=== PATIENT | female | born 1975 | race Caucasian/White ===

== ENCOUNTER 2023-02-26 00:51 | Day surgery (SDC) | payer OTHER, SELFPAY ==
[2023-02-14 14:39] VITALS: BMI 39.5
--- NOTE | 2023-02-25 21:03 | PM.HPGS ---
History of Present Illness History of Present Illness Consent: Risks, benefits, and alternatives have been discussed and questions answered. Patient agrees to proceed with procedure. 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 Also due for colon cancer screening. Her upper abdominal pain is present virtually every day and lasts for variable amount it is of time. She is not losing weight. Review of Systems Review of Systems: All systems reviewed & are unremarkable except as noted in HPI and below PMFSH Past Medical History Medical History Bright red blood per rectum Cervical radiculopathy due to degenerative joint disease of spine Heart burn Migraine headache Nausea SVT (supraventricular tachycardia) Family History Family History Father Alcoholism Hypertension Depression Mother Hypertension Depression Diabetes mellitus Heart disease Sibling Diabetes mellitus Hypertension Depression Social History Social History Smoking packs per day: 0.5 Smoking cigarettes per day: 10.0 Years smoked: 20 Smoking pack-years: 10.00 Smoking status: Former smoker Tobacco type: cigarettes Alcohol intake: never Substance use: current Substance use type: marijuana Other substance usage details: daily - edibles/smoking Lack of Transportation: No Lack of Food: Never True Current Housing: I Have Housing Concerned About Future Housing: No Difficulty Paying Gas/Electric Bills: No Difficulty Paying for Meds: No Currently Unemployed: No Education: Decline to Answer Difficulty w/ Childcare or Family Care: No Living arrangements: with family Additional living arrangements comments: grandchildren, stepson and boyfriend Occupation/Education: unemployed Gender identity (if verbalized by the patient): Female Spiritual care concerns: No Meds Home Medications and Allergies Home Medications Medication Instructions Recorded Confirmed Type cetirizine 10 mg tablet 10 mg PO DAILY PRN Allergy Symptoms 01/13/23 02/26/23 History cyclobenzaprine 5 mg tablet 5 mg PO BID PRN muscle spasm #60 01/13/23 02/26/23 Rx tabs diltiazem HCl 120 mg capsule,24 120 mg PO BID 01/13/23 02/26/23 History hr,extended release ergocalciferol (vitamin D2) 1,250 1,250 mcg PO WEEKLY #14 caps 01/13/23 02/26/23 Rx mcg (50,000 unit) capsule gabapentin 100 mg capsule 200 mg PO QHS 01/13/23 02/26/23 History ibuprofen 800 mg tablet 800 mg PO TID PRN Pain, Mild 01/13/23 02/26/23 History sumatriptan succinate 25 mg tablet 50 mg PO TID PRN Migraine Headache 01/13/23 02/26/23 History tramadol 50 mg tablet 50 mg PO Q6H PRN pain #60 tabs 01/13/23 02/26/23 Rx famotidine 20 mg tablet (Pepcid) 20 mg PO QHS 1 month #30 tabs 02/04/23 02/26/23 Rx omeprazole 40 mg capsule,delayed 40 mg PO DAILY 1 month #30 caps 02/04/23 02/26/23 Rx release Allergies Allergy/AdvReac Type Severity Reaction Status Date / Time No Known Allergies Allergy Verified 02/26/23 11:01 Exam Const: General: alert Orientation/consciousness: patient oriented x3 Resp: Auscultation: clear to auscultation bilaterally Cardio: Rhythm: regular rhythm GI: GI Palp: Yes Soft to palpation and No Tenderness to palpation present (GI) Neuro: General: patient oriented x3 Assessment and Plan Assessment and plan (1) Epigastric pain: Code(s): R10.13 - Epigastric pain Status: Acute Assessment and Plan: EGD with possible biopsy or dilatation or cautery. (2) Encounter for screening colonoscopy: Code(s): Z12.11 - Encounter for screening for malignant neoplasm of colon Status: Acute Ass
[2023-02-26 11:03] VITALS: BP 99/77; PULSE 87; RESP 18; TEMP 36.7; O2SAT 99
[2023-02-26] MEDS: LACTATED RINGERS 1,000 ML 150 ML IV CONT (11:05)
--- NOTE | 2023-02-26 12:22 | WPDANESEPPF ---
Anes - Initial Pre Proc Eval Procedure: Operation Date: 02/26/23 12:30 Proposed Procedures p Esophagogastroduodenoscopy & Screening Colonoscopy - Maicol Moyer MD Date/Time: 02/26/23 12:22 Surgeon: Maicol Moyer MD Pre Op Diagnosis: epigastric pain,heartburn,hemorrhage anus & rectum Patient Data Age: 47 Gender: F Height: 1.7 m Weight: 113.6 kg Last Vital Signs Temp 98.1 F 02/26/23 11:03 Pulse 87 02/26/23 11:03 Resp 18 02/26/23 11:03 BP 99/77 L 02/26/23 11:03 Pulse Ox 99 02/26/23 11:03 O2 Del Method Room Air 02/26/23 11:03 Allergies Allergy/AdvReac Type Severity Reaction Status Date / Time No Known Allergies Allergy Verified 02/26/23 11:01 Home Medications Medication Instructions Recorded Confirmed Type cetirizine 10 mg tablet 10 mg PO DAILY PRN Allergy Symptoms 01/13/23 02/26/23 History cyclobenzaprine 5 mg tablet 5 mg PO BID PRN muscle spasm #60 01/13/23 02/26/23 Rx tabs diltiazem HCl 120 mg capsule,24 120 mg PO BID 01/13/23 02/26/23 History hr,extended release ergocalciferol (vitamin D2) 1,250 1,250 mcg PO WEEKLY #14 caps 01/13/23 02/26/23 Rx mcg (50,000 unit) capsule gabapentin 100 mg capsule 200 mg PO QHS 01/13/23 02/26/23 History ibuprofen 800 mg tablet 800 mg PO TID PRN Pain, Mild 01/13/23 02/26/23 History sumatriptan succinate 25 mg tablet 50 mg PO TID PRN Migraine Headache 01/13/23 02/26/23 History tramadol 50 mg tablet 50 mg PO Q6H PRN pain #60 tabs 01/13/23 02/26/23 Rx famotidine 20 mg tablet (Pepcid) 20 mg PO QHS 1 month #30 tabs 02/04/23 02/26/23 Rx omeprazole 40 mg capsule,delayed 40 mg PO DAILY 1 month #30 caps 02/04/23 02/26/23 Rx release Patient hx anesthesia problems: none Family hx anesthesia problems: none Results Review: All pre-operative results and documents have been reviewed as part of the pre-operative evaluation. [facility] Past Medical History Medical History Bright red blood per rectum Cervical radiculopathy due to degenerative joint disease of spine Heart burn Migraine headache Nausea SVT (supraventricular tachycardia) Family History Family History Father Alcoholism Hypertension Depression Mother Hypertension Depression Diabetes mellitus Heart disease Sibling Diabetes mellitus Hypertension Depression Social History Social History Smoking packs per day: 0.5 Smoking cigarettes per day: 10.0 Years smoked: 20 Smoking pack-years: 10.00 Smoking status: Former smoker Tobacco type: cigarettes Alcohol intake: never Substance use: current Substance use type: marijuana Other substance usage details: daily - edibles/smoking Lack of Transportation: No Lack of Food: Never True Current Housing: I Have Housing Concerned About Future Housing: No Difficulty Paying Gas/Electric Bills: No Difficulty Paying for Meds: No Currently Unemployed: No Education: Decline to Answer Difficulty w/ Childcare or Family Care: No Living arrangements: with family Additional living arrangements comments: grandchildren, stepson and boyfriend Occupation/Education: unemployed Gender identity (if verbalized by the patient): Female Spiritual care concerns: No Anes - Eval Final PreProcedure Day of Procedure 02/26/23 12:22 Patient weight: morbidly obese Airway: Mallampati scale class II ASA classification: III Anesthesia type and monitoring: general GIVS and standard monitoring Results Review: All pre-operative results and documents have been reviewed as part of the pre-operative evaluation. Informed Consent: The patient's anesthetic plan and its attendant risks and benefits were discussed with the patient/family/POA. Questions were solicited and answers provided to the satisfaction of the patient/family/POA.
--- NOTE | 2023-02-26 12:29 | SUR.OPER ---
EGD: START-1229 END-1233, COLON: START-124, END-1242
[2023-02-26 12:47] VITALS: BP 106/76; PULSE 71; RESP 16; O2SAT 100
[2023-02-26 12:57] VITALS: BP 116/77; PULSE 63; RESP 20; O2SAT 100
[2023-02-26 13:07] VITALS: BP 120/76; PULSE 62; RESP 24; O2SAT 100
== END 2023-02-26 13:20 | disposition home or self-care (01) ==
PROVIDERS: PCP Family Medicine Adolescent Medicine; Visit Provider Internal Medicine Gastroenterology
PROC: 0DJ08ZZ Inspection of Upper Intestinal Tract, Via Natural or Artificial Opening Endoscopic (ICD-10-PCS; CPT 43235; principal; 2023-02-26 12:30)
DX: Z12.11 Encounter for screening for malignant neoplasm of colon (principal); K21.9 Gastro-esophageal reflux disease without esophagitis; R11.0 Nausea; R10.13 Epigastric pain; I47.1 Supraventricular tachycardia; M47.22 Other spondylosis with radiculopathy, cervical region; Z87.891 Personal history of nicotine dependence; F12.90 Cannabis use, unspecified, uncomplicated; E66.01 Morbid (severe) obesity due to excess calories; Z68.39 Body mass index [BMI] 39.0-39.9, adult
CPT/HCPCS: 43239; 45378; 87081; J2704; J7120

== ENCOUNTER 2023-04-12 08:22 | Outpatient (CLI) | payer OTHER, SELFPAY ==
--- NOTE | ~2023-04-12 | XR_ITS ---
Left Knee Technique: AP and lateral views were obtained. Clinical History: Pain Findings: No fracture or dislocation is seen. Osseous alignment is anatomic. Joint spaces are preserv ed without degenerative or erosive change. Soft tissues are unremarkable. No joint effusion is seen. Impression: Unremarkable left knee radiographs. Reviewed, dictated and finalized at location . Impression: Unremarkable left knee radiographs.
--- NOTE | ~2023-04-12 | XR_ITS ---
Right Knee Technique: AP and lateral views were obtained. Clinical History: Pain Findings: No fracture or dislocation is seen. Osseous alignment is anatomic. Joint spaces are preserv ed without degenerative or erosive change. Soft tissues are unremarkable. No joint effusion is seen. Impression: Unremarkable right knee radiographs. Reviewed, dictated and finalized at location . Impression: Unremarkable right knee radiographs.
== END 2023-04-12 08:23 | disposition home or self-care (01) ==
PROVIDERS: PCP Family Medicine Adolescent Medicine; Visit Provider Nurse Practitioner Family
DX: G89.29 Other chronic pain (principal); M25.569 Pain in unspecified knee
CPT/HCPCS: 73560

== ENCOUNTER 2023-07-30 09:08 | Outpatient (CLI) | payer OTHER, SELFPAY ==
--- NOTE | ~2023-07-30 | US_ITS ---
Limited Abdominal Sonogram: Real-time sonographic imaging of the right upper quadrant was performed. Clinical History: Abnormal serum enzyme levels Findings: The liver appears echogenic, with no evidence of mass lesion or bile duct dilatation. Main portal vein demonstrates normal direction of flow. The gallbladder is well distended, and appears no rmal with no evidence of gallstone or wall thickening. The common bile duct measures 4 mm. The visua lized pancreas, aorta, and IVC are unremarkable. Impression: Diffuse fatty infiltration of liver. Reviewed, dictated and finalized at location [facility] Impression: Diffuse fatty infiltration of liver.
== END 2023-07-30 09:09 | disposition home or self-care (01) ==
PROVIDERS: PCP Nurse Practitioner Family; Visit Provider Nurse Practitioner Family
DX: K76.0 Fatty (change of) liver, not elsewhere classified (principal); R74.8 Abnormal levels of other serum enzymes
CPT/HCPCS: 76705

== ENCOUNTER 2023-11-27 09:29 | Outpatient (CLI) | payer OTHER, SELFPAY ==
--- NOTE | ~2023-11-27 | US_ITS ---
Pelvic ultrasound. Clinical History: Abnormal uterine bleeding Technique: Realtime transabdominal and transvaginal scanning of the pelvis was performed. Color flow Doppler and Doppler spectral analysis were performed. Findings: The uterus is retroverted. The endometrial stripe has a thickness of 4 mm. Probable ill-de fined intramural fibroid measuring 1.6 cm noted. The right ovary measures 1.7 x 3.5 x 1.6 cm. No significant right ovarian or adnexal mass is seen. The left ovary measures 2.2 x 3.5 x 2.2 cm. No significant left ovarian or adnexal mass is seen. There is no evidence of free fluid in the cul de sac. Impression: Small uterine fibroid. Reviewed, dictated and finalized at [facility]. Impression: Small uterine fibroid.
== END 2023-11-27 09:30 | disposition home or self-care (01) ==
LOC: ANHIMG 09:30
PROVIDERS: PCP Nurse Practitioner Family; Visit Provider Nurse Practitioner Family
DX: N93.9 Abnormal uterine and vaginal bleeding, unspecified (principal); D25.9 Leiomyoma of uterus, unspecified
CPT/HCPCS: 76830; 76856

== ENCOUNTER 2024-05-24 00:39 | Day surgery (SDC) | payer OTHER, SELFPAY ==
[2024-05-06 09:03] VITALS: BMI 43.9
[2024-05-24 09:10] VITALS: BP 129/93; PULSE 79; RESP 18; TEMP 36.3; O2SAT 96
[2024-05-24 09:24] LABS: BEDSIDEPREGUCG Negative (Negative)
--- NOTE | 2024-05-24 09:31 | P.PNAN_ITS ---
Anes - Initial Pre Proc Eval Procedure: Operation Date: 05/24/24 10:00 Proposed Procedures p Screening Colonoscopy - Andrew Clinton MD Date/Time: 05/24/24 09:31 Surgeon: Andrew Clinton MD Pre Op Diagnosis: screening for malignant neoplasm of colon Patient Data Age: 48 Gender: F Height: 1.7 m Weight: 133.4 kg Last Vital Signs Temp 36.3 C L 05/24/24 09:10 Pulse 79 05/24/24 09:10 Resp 18 05/24/24 09:10 BP 129/93 H 05/24/24 09:10 Pulse Ox 96 05/24/24 09:10 O2 Del Method Room Air 05/24/24 09:10 Allergies Allergy/AdvReac Type Severity Reaction Status Date / Time No Known Allergies Allergy Verified 05/24/24 09:25 Home Medications Medication Instructions Recorded Confirmed Type cetirizine 10 mg tablet 10 mg PO DAILY PRN Allergy Symptoms 01/13/23 05/13/24 History diltiazem HCl 120 mg capsule,24 240 mg PO ONCE 03/11/23 05/13/24 History hr,extended release olanzapine 10 mg tablet 10 mg PO QHS #90 tabs 09/19/23 05/13/24 Rx sumatriptan succinate 100 mg tablet See Rx Instructions PO .COMPLEX 10/24/23 05/13/24 Rx #14 tabs gabapentin 300 mg capsule See Rx Instructions .Route 03/09/24 05/13/24 Rx .COMPLEX #270 caps duloxetine 60 mg capsule,delayed See Rx Instructions .Route 04/12/24 05/13/24 Rx release .COMPLEX #90 ea ergocalciferol (vitamin D2) 1,250 See Rx Instructions .Route 04/20/24 05/13/24 Rx mcg (50,000 unit) capsule .COMPLEX #14 caps omeprazole 40 mg capsule,delayed 40 mg PO DAILY 05/06/24 05/13/24 History release ondansetron HCl 8 mg tablet See Rx Instructions .Route 05/06/24 05/13/24 History .COMPLEX PRN Nausea cyclobenzaprine 5 mg tablet 5 mg PO BID PRN muscle spasm #60 05/13/24 05/13/24 Rx tabs furosemide 20 mg tablet 20 mg PO QAM PRN edema #20 tabs 05/13/24 05/13/24 Rx topiramate 50 mg tablet 50 mg PO QHS #30 tabs 05/13/24 05/13/24 Rx tramadol 50 mg tablet 50 mg PO Q6H PRN pain #90 tabs 05/13/24 05/13/24 Rx Laboratory Tests 05/24/24 09:21 POC Urine HCG, Qual Negative (Negative) Patient hx anesthesia problems: none Family hx anesthesia problems: none Results Review: All pre-operative results and documents have been reviewed as part of the pre- operative evaluation. [facility] Past Medical History Medical History Bright red blood per rectum Cervical radiculopathy due to degenerative joint disease of spine Heart burn Migraine headache Nausea SVT (supraventricular tachycardia) Family History Family History Father Alcoholism Hypertension Depression Parkinson disease Alzheimer disease Mother Hypertension Depression Diabetes mellitus Heart disease Sibling Diabetes mellitus Hypertension Depression Social History Social History Smoking packs per day: 0.5 Smoking cigarettes per day: 10.0 Years smoked: 15 Smoking pack-years: 7.50 Smoking status: Current every day smoker Tobacco type: cigarettes Smoking end date: 04/11/14 Alcohol intake: never Substance use: current Substance use type: marijuana Other substance usage details: Smokes marijuana multiple time daily Last use: 05/06/2024 Do You Feel Safe in your Home?: Yes Lack of Transportation: No Lack of Food: Never True Current Housing: I Have Housing Concerned About Future Housing: No Difficulty Paying Gas/Electric Bills: No Difficulty Paying for Meds: No Currently Unemployed: No Education: High School Diploma/GED Difficulty w/ Childcare or Family Care: No Living arrangements: with family Additional living arrangements comments: grandchildren, stepson and boyfriend Occupation/Education: unemployed Gender identity (if verbalized by the patient): Female Spiritual care concerns: No Anes - Eval Final PreProcedure Day of Procedure 05/24/24 09:31 Patient weight: morbidly obese Heart: regular rate and rhythm Lungs: clear to auscultation Airway: Mallampati scale class II Neurological: alert and oriented Last oral intake: >/= 8 hours ASA classification: III Emergent: no Anesthetic plan: proceed Anesthesia type and monitoring: general GIVS and standard monitoring Results Review: All pre-operative results and documents have been reviewed as part of the pre- operative evaluation. Informed Consent: The patient's anesthetic plan and its attendant risks and benefits were discussed with the patient/family/POA. Questions were solicited and answers pro vided to the satisfaction of the patient/family/POA.
[2024-05-24] MEDS: LACTATED RINGERS 1,000 ML 150 ML IV CONT (09:50)
--- NOTE | 2024-05-24 11:01 | PM.IMHP ---
H&P: HPI History of Present Illness Date/Time: 05/24/24 11:01 Chief Complaint: Screening colonoscopy. Narrative: Is the patient's 1st screening colonoscopy. It was attempted a few months ago but was not well prepped Review of Systems Review of Systems: All systems reviewed & are unremarkable except as noted in HPI and below PMFSH Past Medical History Medical History Bright red blood per rectum Cervical radiculopathy due to degenerative joint disease of spine Heart burn Migraine headache Nausea SVT (supraventricular tachycardia) Family History Family History Father Alcoholism Hypertension Depression Parkinson disease Alzheimer disease Mother Hypertension Depression Diabetes mellitus Heart disease Sibling Diabetes mellitus Hypertension Depression Social History Social History Smoking packs per day: 0.5 Smoking cigarettes per day: 10.0 Years smoked: 15 Smoking pack-years: 7.50 Smoking status: Current every day smoker Tobacco type: cigarettes Smoking end date: 04/11/14 Alcohol intake: never Substance use: current Substance use type: marijuana Other substance usage details: Smokes marijuana multiple time daily Last use: 05/06/2024 Do You Feel Safe in your Home?: Yes Lack of Transportation: No Lack of Food: Never True Current Housing: I Have Housing Concerned About Future Housing: No Difficulty Paying Gas/Electric Bills: No Difficulty Paying for Meds: No Currently Unemployed: No Education: High School Diploma/GED Difficulty w/ Childcare or Family Care: No Living arrangements: with family Additional living arrangements comments: grandchildren, stepson and boyfriend Occupation/Education: unemployed Gender identity (if verbalized by the patient): Female Spiritual care concerns: No Meds Home Medications and Allergies Home Medications Medication Instructions Recorded Confirmed Type cetirizine 10 mg tablet 10 mg PO DAILY PRN Allergy Symptoms 01/13/23 05/24/24 History diltiazem HCl 120 mg capsule,24 240 mg PO ONCE 03/11/23 05/24/24 History hr,extended release olanzapine 10 mg tablet 10 mg PO QHS #90 tabs 09/19/23 05/24/24 Rx sumatriptan succinate 100 mg tablet See Rx Instructions PO .COMPLEX 10/24/23 05/24/24 Rx #14 tabs gabapentin 300 mg capsule See Rx Instructions .Route 03/09/24 05/24/24 Rx .COMPLEX #270 caps duloxetine 60 mg capsule,delayed See Rx Instructions .Route 04/12/24 05/24/24 Rx release .COMPLEX #90 ea ergocalciferol (vitamin D2) 1,250 See Rx Instructions .Route 04/20/24 05/24/24 Rx mcg (50,000 unit) capsule .COMPLEX #14 caps omeprazole 40 mg capsule,delayed 40 mg PO DAILY 05/06/24 05/24/24 History release ondansetron HCl 8 mg tablet See Rx Instructions .Route 05/06/24 05/24/24 History .COMPLEX PRN Nausea cyclobenzaprine 5 mg tablet 5 mg PO BID PRN muscle spasm #60 05/13/24 05/24/24 Rx tabs furosemide 20 mg tablet 20 mg PO QAM PRN edema #20 tabs 05/13/24 05/24/24 Rx topiramate 50 mg tablet 50 mg PO QHS #30 tabs 05/13/24 05/24/24 Rx tramadol 50 mg tablet 50 mg PO Q6H PRN pain #90 tabs 05/13/24 05/24/24 Rx Allergies Allergy/AdvReac Type Severity Reaction Status Date / Time No Known Allergies Allergy Verified 05/24/24 09:25 Vital Signs Vital Signs - 24 hr 05/24/24 09:10 Temperature 97.3 F L Pulse Rate 79 Respiratory Rate 18 Blood Pressure 129/93 H Pulse Oximetry 96 Oxygen Delivery Room Air Assessment and Plan Assessment and plan (1) Encounter for screening colonoscopy: Code(s): Z12.11 - Encounter for screening for malignant neoplasm of colon Status: Acute Plan patient deemed a good candidate for colonoscopy, will proceed.
[2024-05-24 11:25] VITALS: BP 123/87; PULSE 79; RESP 19; O2SAT 100
[2024-05-24 11:35] VITALS: BP 144/99; PULSE 95; RESP 26; O2SAT 100
[2024-05-24 11:45] VITALS: BP 137/92; PULSE 80; RESP 19; O2SAT 100
== END 2024-05-24 11:50 | disposition home or self-care (01) ==
PROVIDERS: Anesthesiology; PCP Nurse Practitioner Family; Referring Provider Internal Medicine Gastroenterology; Visit Provider Internal Medicine Gastroenterology
PROC: 0DJD8ZZ Inspection of Lower Intestinal Tract, Via Natural or Artificial Opening Endoscopic (ICD-10-PCS; CPT 45378; principal; 2024-05-24 10:00)
DX: Z12.11 Encounter for screening for malignant neoplasm of colon (principal); I47.10 Supraventricular tachycardia, unspecified; F17.210 Nicotine dependence, cigarettes, uncomplicated; F12.90 Cannabis use, unspecified, uncomplicated; E66.01 Morbid (severe) obesity due to excess calories; Z68.42 Body mass index [BMI] 45.0-49.9, adult; Z79.891 Long term (current) use of opiate analgesic; Z82.49 Family history of ischemic heart disease and other diseases of the circulatory system
CPT/HCPCS: 45378; J2003; J2704; J7120